=== PATIENT | female | born 1955 | race Caucasian/White ===

== ENCOUNTER → 2021-01-13 | Day surgery (SDC) | payer OTHER ==
[~2021-01-13] VITALS: Ht 154.9 cm; Wt 70.3 kg
[~2021-01-13] MED LIST: ASPIRIN CHEWABL81 MG PO; BACLOFEN20 MG PO; BENTYL 20MG TAB20 MG PO; CLARITIN 10MG T10 MG PO; CLEARLAX119 GM PO; COREG 25MG TAB25 MG PO; FUROSEMIDE20 MG PO; INCRUSE ELLI62.5 MCG INH; ISOSORBIDE MONO30 MG PO; MUCUS RELIEF600 MG PO; NITROGLYCERIN0.4 MG SL; OMEPRAZOLE40 MG PO; PRAVASTATIN SOD20 MG PO; QVAR REDIHALE10.6 G1 INH; RALOXIFENE HCL60 MG PO; STOOL SOFTENER1 EAC2 PO; VALIUM 5 MG TAB5 MG PO; VENTOLIN HFA 66.7 GM INH; VITAMIN E400 UNIT PO
== END | disposition home or self-care (01) ==
LOC: OR 07:11
PROVIDERS: Internal Medicine Gastroenterology
PROC: 0DBL8ZX Excision of Transverse Colon, Via Natural or Artificial Opening Endoscopic, Diagnostic (ICD-10-PCS; 2021-01-13)
PROC: 0DB68ZX Excision of Stomach, Via Natural or Artificial Opening Endoscopic, Diagnostic (ICD-10-PCS; principal; 2021-01-13 08:00)
PROC: 0DB78ZX Excision of Stomach, Pylorus, Via Natural or Artificial Opening Endoscopic, Diagnostic (ICD-10-PCS; 2021-01-13 08:00)
DX: K29.50 Unspecified chronic gastritis without bleeding (principal); D12.3 Benign neoplasm of transverse colon; K57.30 Diverticulosis of large intestine without perforation or abscess without bleeding; K64.1 Second degree hemorrhoids; K74.60 Unspecified cirrhosis of liver; J44.9 Chronic obstructive pulmonary disease, unspecified; F17.200 Nicotine dependence, unspecified, uncomplicated; G43.909 Migraine, unspecified, not intractable, without status migrainosus; E78.00 Pure hypercholesterolemia, unspecified; M19.90 Unspecified osteoarthritis, unspecified site; I47.1 Supraventricular tachycardia; E66.9 Obesity, unspecified; Z68.30 Body mass index [BMI] 30.0-30.9, adult; Z86.010 Personal history of colon polyps; Z79.899 Other long term (current) drug therapy; Z88.0 Allergy status to penicillin
CPT/HCPCS: J2001; J2704; J7040